=== PATIENT | male | born 1985 | race Caucasian/White ===

== ENCOUNTER → 2024-05-07 | Outpatient (CLI) | payer OTHER, SELFPAY ==
--- NOTE | 2024-05-07 14:48 | MRI_ITS ---
STUDY: MRI RIGHT ANKLE WITHOUT CONTRAST REASON FOR EXAM: Male, 38 years old. GOUT painful to walk if not taking prednisone TECHNIQUE: Standardized fat and water weighted pulse sequences were obtained in all 3 orthogonal planes. COMPARISON: X-ray of the left ankle dated December 02, 2007 FINDINGS: Mild subcutaneous edema is present around the ankle. A small to moderate-sized joint effusion is also present. A high-grade sprain injury of the deltoid ligament is present with edema and thickening and loss of fiber morphology with associated avulsive/stress contusions in the medial malleolus and medial side of the talus. Normal posterior tibialis tendon. Normal flexor digitorum longus tendon. Normal flexor hallucis longus tendon. There is a mild tenosynovitis of the peroneal tendons without a demonstrated tendon tear. Normal tibialis anterior tendon. Normal extensor hallucis longus tendon. Normal extensor digitorum longus tendons. Normal Achilles tendon and teno-osseous insertion. Normal plantar fascia. Normal plantar calcaneal tubercles. Normal intrinsic muscles of the rearfoot. Normal distal tibiofibular syndesmotic ligamentous complex. Normal lateral ligamentous complex. Normal subtalar ligaments and sinus tarsi. Normal plantar calcaneonavicular (spring) ligament. Normal tibiotalar articulation. Normal talar dome. Normal subtalar articulations. Normal talonavicular articulation. Normal calcaneocuboid articulation. Normal navicular-cuneiform articulations. MRI/Lower Ext Joint Only (Routine) IMPRESSION: 1. A high-grade sprain injury of the deltoid ligament is present with edema and thickening and loss of fiber morphology with associated avulsive/stress contusions in the medial malleolus and medial side of the talus. 2. Mild tenosynovitis of the peroneal tendons. 3. Small to moderate-sized ankle joint effusion Electronically Signed: Pedro Khan MD at 15:36 EDT ,
--- NOTE | 2024-05-07 14:49 | MRI_ITS ---
STUDY: MRI RIGHT FOREFOOT WITHOUT CONTRAST REASON FOR EXAM: Male, 38 years old. GOUT c/o extreme pain while walking if not on prednisone TECHNIQUE: Standardized fat and water weighted pulse sequences were obtained in all 3 orthogonal planes. COMPARISON: None. FINDINGS: No marrow edema or fractures are present. No demonstrated cortical erosion or other signs of osteomyelitis. No soft tissue gout tophaceous deposit or intraosseous gout deposit visualized on this study. Mild degenerative narrowing of the third MTP joint with a small effusion and osteoarthritic reactive signal in the head of the third metatarsal bone -this could be related to stress/weightbearing edema or osteoarthritic signal. A small joint effusion is also present in the first MTP which is also mildly narrowed. Small second MTP joint effusion noted. Minimal subcutaneous edema is present around the 3rd-5th digits of the forefoot. No intramuscular or subcutaneous abscess is present. Normal metatarsophalangeal joint of the hallux. Normal tibial and fibular sesamoids, with normal sesamoids-first metatarsal articulations. Normal interphalangeal joint of the hallux. Normal proximal and distal phalanges of the great toe. Normal medial and lateral heads of the flexor hallucis brevis tendons. Normal flexor and extensor hallucis longus tendons. Normal second through fifth metatarsophalangeal (MTP) joints. Normal interphalangeal joints of the second through fifth toes. Normal proximal, middle and distal phalanges of the second through fifth toes. Normal first through fourth intermetatarsal spaces. Normal flexor and extensor tendons of the second through fifth toes. Normal remaining visualized metatarsi. Normal intrinsic muscles of the forefoot. Normal Lisfranc joint and ligaments. MRI/Lower Ext/No Jt/w/o IMPRESSION: 1. No marrow edema or fractures are present. No demonstrated cortical erosion or other signs of osteomyelitis. No soft tissue gout tophaceous deposit or intraosseous gout deposit visualized on this study. 2. Mild degenerative narrowing of the third MTP joint with a small effusion and osteoarthritic reactive signal in the head of the third metatarsal bone -this could be related to stress/weightbearing edema or osteoarthritic signal. 3. A small joint effusion is also present in the first MTP which is also mildly narrowed. Small second MTP joint effusion noted. 4. Minimal subcutaneous edema is present around the 3rd-5th digits of the forefoot. No intramuscular or subcutaneous abscess is present. Electronically Signed: Pedro Khan MD at 10:13 EDT ,
== END | disposition home or self-care (01) ==
LOC: MRI 14:43
PROVIDERS: PCP Nurse Practitioner Family; Referring Provider Nurse Practitioner Family; Visit Provider Nurse Practitioner Family
DX: M10.071 Idiopathic gout, right ankle and foot (principal)
CPT/HCPCS: 73718; 73721

== ENCOUNTER → 2025-02-03 | Outpatient (CLI) | payer OTHER, SELFPAY ==
--- NOTE | 2025-02-03 10:06 | RAD_ITS ---
PROCEDURE: PELVIS 1 OR 2 VIEWS 02/03/2025 REASON FOR EXAM: INFLAMMATORY POLYARTHROPATHY TECHNIQUE: 1 view(s) of the pelvis. COMPARISON: None available FINDINGS: Symmetric appearing SI joints and pubic symphysis appear within limits. Joint spaces appear within limits. No fracture or dislocation. No osseous lesion. No sclerotic change. RAD/Pelvis 1 or 2 Views IMPRESSION: Study appears within limits. Reading Location: [id number]
[2025-02-03 12:28] LABS: Erythrocyte Sedimentation Rate 3 mm/hr (0-20)
[2025-02-03 12:36] LABS: Absolute Neutrophil Count 3.2 X10^3/uL (2.0-7.7); Basophil# 0.03 X10^3/uL; Basophil% 0.6 % (0-1); Eosinophil# 0.12 X10^3/uL; Eosinophils% 2.3 % (0-5); Hematocrit 44.6 % (40-54); Hemoglobin 15.3 g/dL (13.0-16.5); Lymphocyte % 24.4 % (19-41); Mean Corp Hgb Conc 34.3 g/dL (32-36); Mean Corpuscular Hgb 27.7 pg (27.0-32.0); Mean Corpuscular Volume 80.8 fL (80-94); Mean Platelet Vol. 10.4 fl (6.2-12.0); Monocyte# 0.66 X10^3/uL; Monocyte% 12.4 % (0-10); NRBC Flagged by Analyzer 0 % (0-5); Neutrophil % 59.9 % (47-70); Platelet Count 198 K/mm3 (150-450); RBC Distribution Width CV 12.7 % (11.6-14.6); RBC Distribution Width SD 36.7 fl (35.1-43.9); Red Blood Count 5.52 M/mm3 (4.6-6.2); White Blood Count 5.3 K/mm3 (4.4-11.0)
[2025-02-03 13:02] LABS: Hepatitis B Surface Antibody REAC
[2025-02-03 13:47] LABS: ALB/GLOB Ratio 1.6 RATIO (0.9-2.4); AST(SGOT) 21 U/L (<=37); Alanine Aminotransfer ALT/SGPT 26 U/L (<=46); Albumin, Serum 4.7 g/dL (3.5-5.0); Alkaline Phosphatase 79 U/L (40-129); Anion Gap 14 (5-15); BUN 19 mg/dL (4-19); BUN/Creat Ratio 17.8 RATIO (10-20); Calcium,Total 9.5 mg/dL (7.6-11.0); Carbon Dioxide 21.4 mmol/L (21.0-32.0); Chloride 104 mmol/L (98-108); Creatinine, Serum 1.07 mg/dL (0.70-1.20); EST Glomerular Filtration Rate 92 (>60); Globulin 2.8 g/dL (2.2-4.2); Glucose 98 mg/dL (70-99); Hepatitis B Surface Antigen Nonreactive (Nonreactive); Hepatitis C Antibody Nonreactive (Nonreactive); Protein, Total 7.5 g/dL (5.9-8.4); Sodium Level 139 mmol/L (133-145); Total Bilirubin 0.59 mg/dL (0.00-1.30); Vitamin D,25 Hydroxy 17.4 ng/mL (30-100)
[2025-02-03 13:53] LABS: CRP < 3.00 mg/L (0.0-3.0); Rheumatoid Factor < 10.0 IU/mL (<15)
[2025-02-04 12:08] LABS: CCP IgG Antibodies 8 units (0-19)
== END | disposition home or self-care (01) ==
LOC: MTLAB 10:04
PROVIDERS: PCP Nurse Practitioner Family; Referring Provider Internal Medicine Rheumatology; Visit Provider Internal Medicine Rheumatology
DX: M06.4 Inflammatory polyarthropathy (principal); Z79.899 Other long term (current) drug therapy; G47.33 Obstructive sleep apnea (adult) (pediatric); M21.41 Flat foot [pes planus] (acquired), right foot
CPT/HCPCS: 36415; 72170; 80053; 82306; 85025; 85652; 86140; 86200; 86431; 86706; 86803; 87340